=== PATIENT | female | born 1965 | race Caucasian/White ===

== ENCOUNTER 2017-03-12 18:38 | Inpatient (IN) | payer OTHER ==
[2017-03-12] MEDS ORDERED: morphine CARPU-JECT 8 MG/1 ML DISP.SYRIN ONE ×3 (19:26→20:55)
[2017-03-12] MEDS ORDERED: morphine SULFATE 4 MG/ML VIAL IVPUSH ONE (19:28)
[2017-03-12] MEDS ORDERED: ONDANSETRON 4 MG/2 ML VIAL ONE (19:30)
[2017-03-12] MEDS ORDERED: ONDANSETRON 4 MG/2 ML VIAL IVPUSH ONE (19:31)
[2017-03-12 19:43] LABS: BASO % 0.6 % (0-2.0); EOS % 0.6 % (0-4.5); MCH 30.3 pg (25.7-33.7); MCHC 33.1 g/dl (32.0-36.0); MEAN CELL VOLUME 91.4 fl (80-96); NEUT % 82.9 % (42.8-82.8); PLATELET COUNT 214 K/MM3 (134-434)
[2017-03-12] MEDS ORDERED: SODIUM CHLORIDE 0.9% 1000 ML INFUS.BAG IV ONE (19:48)
[2017-03-12] MEDS ORDERED: morphine CARPU-JECT 2 MG/1 ML DISP.SYRIN IVPUSH ONE (19:48)
[2017-03-12 20:08] LABS: ALBUMIN 3.9 g/dl (3.4-5.0); ALK PHOS 90 U/L (45-117); ANION GAP 11 (8-16); BILIRUBIN,TOTAL 0.9 mg/dL (0.2-1.0); CALCIUM 9.4 mg/dL (8.5-10.1); CO2 25 mmol/L (21-32); CREATININE 0.6 mg/dL (0.55-1.02); GLUCOSE,RANDOM 126 mg/dL (74-106); SGOT/AST 21 U/L (15-37); SGPT/ALT 38 U/L (12-78); TOT PROT 7.2 g/dl (6.4-8.2)
--- NOTE | 2017-03-12 20:08 | PDOC ---
History of Present Illness - General History Source: Patient Exam Limitations: No Limitations - History of Present Illness Initial Comments: 03/12/17 20:21 The patient is a 59 year old female, with a significant past medical history cholecystectomy, who presents to the emergency department with, nausea and diffuse abdominal pain beginning this morning. The patient reports the pain began after consuming a mixed vegetable juice. She describes her pain as constant and vague. She denies emesis accompanying her nausea. She reports this occurring one time before and believes it is an allergic reaction. She denies recent fevers, chills, headache or dizziness. She denies recent vomit , diarrhea or constipation. She denies any sick contacts. She denies recent dysuria, frequency, urgency or hematuria. She denies recent chest pain or shortness of breath. Allergies: NKA Social history: Nonsmoker. Denies EtOH use and recreational drug use. Primary Care Physician: Dr. Connie Dixon <Evan Hernandez - Last Filed: 03/12/17 23:36> - General History Source: Patient Exam Limitations: No Limitations <Alessia Felipe - Last Filed: 03/13/17 01:54> - General Chief Complaint: Pain, Acute Stated Complaint: ABDOMINAL PAIN Time Seen by Provider: 03/12/17 19:27 Past History <Evan Hernandez - Last Filed: 03/12/17 23:36> - Past Medical History COPD: No Other medical history: denies - Surgical History Cholecystectomy: Yes - Suicide/Smoking/Psychosocial Hx Smoking History: Never smoked Information on smoking cessation initiated: No Hx Alcohol Use: No Drug/Substance Use Hx: No <Alessia Felipe - Last Filed: 03/13/17 01:54> - Past Medical History Allergies/Adverse Reactions: Allergies Allergy/AdvReac Type Severity Reaction Status Date / Time No Known Allergies Allergy Unverified 03/12/17 18:43 Home Medications: Ambulatory Orders Lisdexamfetamine Dimesylate [Vyvanse] 30 mg PO DAILY 03/12/17 Review of Systems - Review of Systems Able to Perform ROS?: Yes Comments:: 03/12/17 20:21 GENERAL/CONSTITUTIONAL: No fever or chills. No weakness. HEAD, EYES, EARS, NOSE AND THROAT: No change in vision. No ear pain or discharge. No sore throat. CARDIOVASCULAR: No chest pain or shortness of breath. RESPIRATORY: No cough, wheezing, or hemoptysis. GASTROINTESTINAL: +Nausea. +Diffuse abdominal pain. No vomiting, diarrhea or constipation. GENITOURINARY: No dysuria, frequency, or change in urination. MUSCULOSKELETAL: No joint or muscle swelling or pain. No neck or back pain. SKIN: No rash NEUROLOGIC: No headache, vertigo, loss of consciousness, or change in strength/ sensation. ENDOCRINE: No increased thirst. No abnormal weight change. HEMATOLOGIC/LYMPHATIC: No anemia, easy bleeding, or history of blood clots. ALLERGIC/IMMUNOLOGIC: No hives or skin allergy. All Other Systems: Reviewed and Negative <Evan Hernandez - Last Filed: 03/12/17 23:36> *Physical Exam - Vital Signs Last Vital Signs Temp Pulse Resp BP Pulse Ox 98.7 F 94 H 17 143/90 98 03/12/17 18:41 03/12/17 18:41 03/12/17 18:41 03/12/17 18:41 03/12/17 18:41 - Physical Exam Comments: 03/12/17 20:22 GENERAL: Awake, alert, and fully oriented, in no acute distress HEAD: No signs of trauma EYES: PERRLA, EOMI, sclera anicteric, conjunctiva clear ENT: +Dry mucous membranes. Auricles normal inspection, nares patent. NECK: Normal ROM, supple, no JVD, or masses LUNGS: Breath sounds equal, clear to auscultation bilaterally. No wheezes, and no crackles HEART: Regular rate and rhythm, normal S1 and S2, no murmurs, rubs or gallops ABDOMEN: +Mild epigastric tenderness. Soft, normoactive bowel sounds. No guarding, no rebound. No masses EXTREMITIES: Normal range of motion, no edema. No clubbing or cyanosis. No cords, erythema, or tenderness NEUROLOGICAL: Alert and oriented x 3. Moves all extremities. Face is symmetric. SKIN: Warm, Dry, normal turgor, no rashes or lesions noted. <Evan Hernandez - Last Filed: 03/12/17 23:36> - Vital Signs Last Vital Signs Temp Pulse Resp BP Pulse Ox 98.7 F 94 H 17 143/90 98 03/12/17 18:41 03/12/17 18:41 03/12/17 18:41 03/12/17 18:41 03/12/17 18:41 <Alessia Felipe - Last Filed: 03/13/17 01:54> Heart Score/ECG Review #1 ECG reviewed & interpreted by me at: 01:54 General ECG Interpretation: Sinus Rhythm, Normal Rate (75), Normal Intervals, No acute ischemic changes <Alessia Felipe - Last Filed: 03/13/17 01:54> ED Treatment Course - LABORATORY CBC & Chemistry Diagram: 03/12/17 19:30 03/12/17 19:30 - ADDITIONAL ORDERS Additional order review: Laboratory Results 03/12/17 03/12/17 19:30 19:30 Sodium 142 Potassium 3.6 Chloride 106 Carbon Dioxide 25 Anion Gap 11 BUN 18 Creatinine 0.6 Creat Clearance w eGFR > 60 Random Glucose 126 H Calcium 9.4 Total Bilirubin 0.9 AST 21 ALT 38 Alkaline Phosphatase 90 Total Protein 7.2 Albumin 3.9 Lipase 251 03/12/17 19:30 RBC 4.95 MCV 91.4 MCHC 33.1 RDW 15.0 MPV 10.0 Neutrophils % 82.9 H Lymphocytes % 11.9 Monocytes % 4.0 Eosinophils % 0.6 Basophils % 0.6 - Medications Given in the ED: ED Medications Discontinued Medications Generic Name Dose Route Start Last Admin Trade Name Freq PRN Reason Stop Dose Admin Al Hydroxide/Mg Hydroxide 30 ml 03/12/17 20:09 03/12/17 20:17 Mylanta Oral Suspension - PO 03/12/17 20:10 30 ml ONCE ONE Administration Morphine Sulfate 4 mg 03/12/17 19:28 03/12/17 19:33 Morphine Sulfate IVPUSH 03/12/17 19:29 4 mg ONCE ONE Administration Morphine Sulfate 2 mg 03/12/17 19:48 03/12/17 19:59 Morphine Injection - IVPUSH 03/12/17 19:49 2 mg ONCE ONE Administration Ondansetron HCl 4 mg 03/12/17 19:31 03/12/17 19:33 Zofran Injection IVPUSH 03/12/17 19:32 4 mg ONCE ONE Administration Sodium Chloride 1,000 ml 03/12/17 19:48 03/12/17 20:00 Normal Saline - IV 03/12/17 19:49 1,000 ml ONCE ONE Administration <MalikjonahEvan - Last Filed: 03/12/17 23:36> - LABORATORY CBC & Chemistry Diagram: 03/12/17 19:30 03/12/17 19:30 - ADDITIONAL ORDERS Additional order review: Laboratory Results 03/12/17 19:30 Lipase 251 03/12/17 19:30 RBC 4.95 MCV 91.4 MCHC 33.1 RDW 15.0 MPV 10.0 Neutrophils % 82.9 H Lymphocytes % 11.9 Monocytes % 4.0 Eosinophils % 0.6 Basophils % 0.6 - RADIOLOGY Radiology Studies Ordered: Category Date Time Status ABDOMEN & PELVIS CT WITH CONTR [CT] Stat CT Scan 03/12/17 20:00 Ordered - Medications Given in the ED: ED Medications Discontinued Medications Generic Name Dose Route Start Last Admin Trade Name Freq PRN Reason Stop Dose Admin Morphine Sulfate 4 mg 03/12/17 19:28 03/12/17 19:33 Morphine Sulfate IVPUSH 03/12/17 19:29 4 mg ONCE ONE Administration Morphine Sulfate 2 mg 03/12/17 19:48 03/12/17 19:59 Morphine Injection - IVPUSH 03/12/17 19:49 2 mg ONCE ONE Administration Ondansetron HCl 4 mg 03/12/17 19:31 03/12/17 19:33 Zofran Injection IVPUSH 03/12/17 19:32 4 mg ONCE ONE Administration Sodium Chloride 1,000 ml 03/12/17 19:48 03/12/17 20:00 Normal Saline - IV 03/12/17 19:49 1,000 ml ONCE ONE Administration <Alessia Felipe - Last Filed: 03/13/17 01:54> Medical Decision Making - Medical Decision Making 03/12/17 20:07 59-year-old female history of prior cholecystectomy here today complaining of nausea diffuse abdominal pain starting since this a.m. after drinking some juice. No vomiting but folic inducing emesis to relieve her nausea. Abdominal pain is diffuse no moderating factors no radiation constant no urinary complaints no fevers chills no sick contacts no travel On exam she is awake alert no acute distress does appear to have dry mucous membranes cardiac lung exam is unremarkable abdomen is soft mild epigastric tenderness otherwise unremarkable abdominal exam no rebound no guarding extremities are warm well perfused no edema Differential diagnosis bowel obstruction, pancreatitis, viral gastritis, dehydration, electrolyte abnormality. Plan CT abdomen and pelvis CBC lytes lipase UA IV hydration antiemetics and pain control and reassess <Alessia Felipe - Last Filed: 03/13/17 01:54> *DC/Admit/Observation/Transfer - Attestations Scribe Attestion: 03/12/17 20:22 Documentation prepared by Evan Hernandez, acting as medical office technology instructor for Alessia Felipe MD. <Evan Hernandez - Last Filed: 03/12/17 23:36> - Discharge Dispostion Admit: Yes <Alessia Felipe - Last Filed: 03/13/17 01:54> Diagnosis at time of Disposition: SBO (small bowel obstruction)
[2017-03-12] MEDS ORDERED: MAG HYDROX/AL HYDROX/SIMETH 30 ML UNIT-DOSE CUP PO ONE (20:09)
[2017-03-12] MEDS ORDERED: FAMOTIDINE 20 MG/50 ML IVPB 20 MG/50 ML MG IVPB ONE ×2 (20:11→22:28)
[2017-03-12] MEDS ORDERED: MAG HYDROX/AL HYDROX/SIMETH 30 ML UNIT-DOSE CUP ONE (20:11)
[2017-03-12] MEDS: FAMOTIDINE IV 20 MG/12 ML VIAL IVPUSH SCH ×2 (20:17→22:03)
[2017-03-12] MEDS ORDERED: morphine CARPU-JECT 4 MG/1 ML DISP.SYRIN IVPUSH ONE ×3 (20:52→23:46)
[2017-03-12] MEDS ORDERED: morphine CARPU-JECT 10 MG/1 ML DISP.SYRIN ONE (23:51)
--- NOTE | 2017-03-13 00:14 | PN ---
Teaching Attending Note Name of Resident: Vicente Lainez ATTENDING PHYSICIAN STATEMENT I saw and evaluated the patient. I reviewed the resident's note and discussed the case with the resident. I agree with the resident's findings and plan as documented. SUBJECTIVE: 59 yo F with pmhx of choleycystectomy who presents with diffuse abdominal pain and nausea. Notes she drank a vegetable juice in the am, and after that pain began. Pain is described as constant in nature. No vomiting. OBJECTIVE: Physical: VS: Vital Signs Period Temp Pulse Resp BP Sys/Anthony Pulse Ox Last 24 Hr 98.7 F 94 17 143/90 98 GEN: NAD, Resting in bed, Able to speak full sentences, AA0X3 HEENT: NCAT, PERRL, throat without erythema or exudates CARD: RRR S1, S2 RESP: CTAB ABD: BSx4, Mild distension, NTD to palption EXT: - C/C/E CBCD WBC 13.0 K/mm3 (4.0-10.0) H 03/12/17 19:30 RBC 4.95 M/mm3 (3.60-5.2) 03/12/17 19:30 Hgb 15.0 GM/dL (10.7-15.3) 03/12/17 19:30 Hct 45.3 % (32.4-45.2) H 03/12/17 19:30 MCV 91.4 fl (80-96) 03/12/17 19:30 MCHC 33.1 g/dl (32.0-36.0) 03/12/17 19:30 RDW 15.0 % (11.6-15.6) 03/12/17 19:30 Plt Count 214 K/MM3 (134-434) 03/12/17 19:30 MPV 10.0 fl (7.5-11.1) 03/12/17 19:30 CMP Sodium 142 mmol/L (136-145) 03/12/17 19:30 Potassium 3.6 mmol/L (3.5-5.1) 03/12/17 19:30 Chloride 106 mmol/L (98-107) 03/12/17 19:30 Carbon Dioxide 25 mmol/L (21-32) 03/12/17 19:30 Anion Gap 11 (8-16) 03/12/17 19:30 BUN 18 mg/dL (7-18) 03/12/17 19:30 Creatinine 0.6 mg/dL (0.55-1.02) 03/12/17 19:30 Creat Clearance w eGFR > 60 (>60) 03/12/17 19:30 Random Glucose 126 mg/dL (74-106) H 03/12/17 19:30 Calcium 9.4 mg/dL (8.5-10.1) 03/12/17 19:30 Total Bilirubin 0.9 mg/dL (0.2-1.0) 03/12/17 19:30 AST 21 U/L (15-37) 03/12/17 19:30 ALT 38 U/L (12-78) 03/12/17 19:30 Alkaline Phosphatase 90 U/L (45-117) 03/12/17 19:30 Total Protein 7.2 g/dl (6.4-8.2) 03/12/17 19:30 Albumin 3.9 g/dl (3.4-5.0) 03/12/17 19:30 CT ABD/ PELVIS W. CON: Mid-Distal small bowel obstruction, small amt free fluid within pelvis and mesentery. S/p Choleycystectomy ASSESSMENT AND PLAN: 51 F wiht hx of choleycystectomy who presents with abdominal pain and nausea, being admitted for a small bowel obstruction 1.) Small Bowel Obstruction - NPO - NGT- PT refusing right now - Sx. consulted - IVF - Type and Screen - Coags in Am - Serial Abd. Exams 2.) Dvt Ppx - SCDs Place in Med-Sx
--- NOTE | 2017-03-13 00:18 | HP ---
CHIEF COMPLAINT: diffuse abdominal pain PCP:Dr.Danuta Dixon HISTORY OF PRESENT ILLNESS: Patient is 51 year old female with PMHx of cholecystectomy who presented to the ED today due to diffuse abdominal pain. The pain started 6 am yesterday, squeezing in nature , mid epigastric and radiated to her back. The pain is constant worsen with food and improve with morphine at ED. Patient reports nausea but denies nay vomiting. She had a bowel movement around 12 pm and it was normal, no diarrhea , constipation or melena. She denies any weight loss but reports weight gain. She denies any fever, chills, chest pain, palpitation, SOB. She denies any urinary symptoms. She denies recent travel. Her had a flue last week, she had a flue last month. She has a history of tubal ligation 12 years a go and cholecystectomy more than 10 years ago. She had a previous episode of abdominal pain years ago and resolved by it self. ER course was notable for: (1) CT scan Abdomen and pelvic shows small bowel obstruction (2) Pain controlled with IV morphine , Ondansteron IV for Nausea (3)WBC 13, Lipase 251 Recent Travel:Denies PAST MEDICAL HISTORY: Asthma , PAST SURGICAL HISTORY: Cholecystectomy 10 years ago , tubal ligation 12 years ago Social History: Smoking:socially Alcohol:socially Drugs: denies Family History: father had ruptured aneurysm at age of 73 Allergies No Known Allergies Allergy (Unverified 03/12/17 18:43) HOME MEDICATIONS: Home Medications Medication Instructions Recorded Lisdexamfetamine Dimesylate 30 mg PO DAILY 03/12/17 [Vyvanse] REVIEW OF SYSTEMS CONSTITUTIONAL: Absent: fever, chills, diaphoresis, generalized weakness, malaise, loss of appetite, HEENT: Absent: rhinorrhea, nasal congestion, throat pain, throat swelling, difficulty swallowing, mouth swelling, ear pain, eye pain, visual changes CARDIOVASCULAR: Absent: chest pain, syncope, palpitations, irregular heart rate, lightheadedness , peripheral edema RESPIRATORY: Absent: cough, shortness of breath, dyspnea with exertion, orthopnea, wheezing, stridor, hemoptysis GASTROINTESTINAL: Absent: abdominal pain, abdominal distension, nausea, vomiting, diarrhea, constipation, melena, hematochezia GENITOURINARY: Absent: dysuria, frequency, urgency, hesitancy, hematuria, flank pain, genital pain MUSCULOSKELETAL: Absent: myalgia, arthralgia, joint swelling, back pain, neck pain SKIN: Absent: rash, itching, pallor HEMATOLOGIC/IMMUNOLOGIC: Absent: easy bleeding, easy bruising, lymphadenopathy, frequent infections ENDOCRINE: Absent: unexplained weight gain, unexplained weight loss, heat intolerance, cold intolerance NEUROLOGIC: Absent: headache, focal weakness or paresthesias, dizziness, unsteady gait, seizure, mental status changes, bladder or bowel incontinence PSYCHIATRIC: Absent: anxiety, depression, suicidal or homicidal ideation, hallucinations. PHYSICAL EXAMINATION Vital Signs - 24 hr 03/12/17 18:41 Temperature 98.7 F Pulse Rate 94 H Respiratory 17 Rate Blood Pressure 143/90 O2 Sat by Pulse 98 Oximetry (%) GENERAL: Awake, alert, and fully oriented, in mild distress. HEAD: Normal with no signs of trauma. EYES: Pupils equal, round and reactive to light, sclera anicteric, conjunctiva clear. EARS, NOSE, THROAT: Ears normal, nares patent, oropharynx clear without exudates. Moist mucous membranes. NECK: supple without lymphadenopathy, LUNGS: Breath sounds equal, clear to auscultation bilaterally. No wheezes, and no crackles. No accessory muscle use. HEART: Regular rate and rhythm, normal S1 and S2 without murmur, rub or gallop. ABDOMEN: Soft, nontender, not distended, normoactive bowel sounds, no guarding, no rebound, no masses LOWER EXTREMITIES: 2+ pulses, warm, well-perfused. No calf tenderness. No peripheral edema. NEUROLOGICAL: No focal deficit Normal speech. PSYCHIATRIC: Cooperative. Good eye contact. Appropriate mood and affect. SKIN: Warm, dry, normal turgor, no rashes or lesions noted, normal capillary refill. Laboratory Results - last 24 hr 03/12/17 03/12/17 03/12/17 19:30 19:30 19:30 WBC 13.0 H RBC 4.95 Hgb 15.0 Hct 45.3 H MCV 91.4 MCH 30.3 MCHC 33.1 RDW 15.0 Plt Count 214 MPV 10.0 Neutrophils % 82.9 H Lymphocytes % 11.9 Monocytes % 4.0 Eosinophils % 0.6 Basophils % 0.6 Sodium 142 Potassium 3.6 Chloride 106 Carbon Dioxide 25 Anion Gap 11 BUN 18 Creatinine 0.6 Creat Clearance w eGFR > 60 Random Glucose 126 H Lactic Acid Calcium 9.4 Total Bilirubin 0.9 AST 21 ALT 38 Alkaline Phosphatase 90 Total Protein 7.2 Albumin 3.9 Lipase 251 03/12/17 19:50 WBC RBC Hgb Hct MCV MCH MCHC RDW Plt Count MPV Neutrophils % Lymphocytes % Monocytes % Eosinophils % Basophils % Sodium Potassium Chloride Carbon Dioxide Anion Gap BUN Creatinine Creat Clearance w eGFR Random Glucose Lactic Acid 1.0 Calcium Total Bilirubin AST ALT Alkaline Phosphatase Total Protein Albumin Lipase CBC, BMP 03/12/17 19:30 03/12/17 19:30 ASSESSMENT/PLAN: Patient is 51 year old female with PMHx of cholecystectomy who presented to the ED today due to diffuse abdominal pain. was found to have small obstruction and was admitted for further evaluation. # Small Bowel obstruction S/P cholecystectomy * CT abdomen /pelvic shows small bowel obstruction * NPO * Pain controlled with IV tylenol 1000 mg Q6h * IV fluids NS @ 100 CC/Hr * Pepcid * Zofran * Consult surgery * CBC, CMP * Amylase, lipase * CT abdomen /pelvic shows small bowel obstruction * NG tube * Abdominal exam series * Type and screen * coage studies # FEN * NS@ 100 Ml /hr * E monitor * N: NPO # Proph * DVT: SCDs Both legs * GI: Omeprazole # Dispo * Admit ot med surge * NPO
[2017-03-13] MEDS ORDERED: ONDANSETRON 4 MG/2 ML VIAL IVPUSH PRN (01:13)
[2017-03-13] MEDS ORDERED: ACETAMINOPHEN 1000 MG/100 ML VIAL (NON FORMULARY) IVPB PRN (01:15)
[2017-03-13] MEDS: SODIUM CHLORIDE 1,000 ML IV SCH ×2 (01:30→03:15)
[2017-03-13] MEDS ORDERED: HYDROmorphone HCL CARPU-JECT 1 MG/1 ML DISP.SYRIN IVPB ONE (01:34)
--- NOTE | 2017-03-13 01:38 | MSN ---
Admitting History and Physical - Admission Chief Complaint: "stomach pain" History of Present Illness: Mrs. Miki Blanchard is a 51yo F with a past surgical hx of cholecystectomy (>10 years) and tubal ligation (>12 years) who presented with 10/10 diffuse abdominal pain that is more severe in the epigastric and umbilical region and radiates to the back. Patient noted pain at 6am which is worsened by food. Patient had a normal bowel movement in the afternoon. She also complains of nausea but denies loss of appetite, vomitting diarrhea. Patient denies fever, diarrhea/ constipation, chest pains, SOB, urinary symptoms. ER course was notable for: - CT scan of abdomen: mid-distal small bowel obstruction - pain management with morphine. nausea tx w/ odansetron - WBC 13 History Source: Patient Limitations to Obtaining History: Language Barrier (german) - Past Medical History Pulmonary: Yes: Asthma (last attack being years ago, not on any medications) - Past Surgical History Past Surgical History: Yes: Cholecystectomy (>10 years ago), Tubal Ligation (12 years ago) - Smoking History Smoking history: Current some day smoker (only on social occasions) Have you smoked in the past 12 months: No - Alcohol/Substance Use Hx Alcohol Use: No - Social History Usual Living Arrangement: Yes: With Spouse History of Recent Travel: No Home Medications - Allergies Allergies/Adverse Reactions: Allergies Allergy/AdvReac Type Severity Reaction Status Date / Time No Known Allergies Allergy Unverified 03/12/17 18:43 - Home Medications Home Medications: Ambulatory Orders Lisdexamfetamine Dimesylate [Vyvanse] 30 mg PO DAILY 03/12/17 Family Disease History - Family Disease History Family Disease History: Other: Father (ruptured aneurysm) Review of Systems - Review of Systems Constitutional: reports: Other (patient is in acute distress due to pain) Eyes: reports: No Symptoms HENT: reports: No Symptoms Neck: reports: No Symptoms Cardiovascular: reports: No Symptoms Respiratory: reports: No Symptoms Gastrointestinal: reports: Abdominal Pain (diffuse abdominal pain. more severe in the umbilical/ epigastric region and radiates to the back.), Nausea Genitourinary: reports: No Symptoms Physical Examination Vital Signs: Vital Signs Temperature 98.7 F 03/12/17 18:41 Pulse Rate 94 H 03/12/17 18:41 Respiratory Rate 17 03/12/17 18:41 Blood Pressure 143/90 03/12/17 18:41 O2 Sat by Pulse Oximetry (%) 98 03/12/17 18:41 Constitutional: Yes: Well Nourished, Moderate Distress Eyes: Yes: WNL, Conjunctiva Clear, EOM Intact, PERRL HENT: Yes: WNL, Atraumatic, Normocephalic Neck: Yes: WNL, Trachea Midline Cardiovascular: Yes: WNL, Regular Rate and Rhythm Respiratory: Yes: WNL, Regular, CTA Bilaterally Gastrointestinal: Yes: WNL, Normal Bowel Sounds, Soft, Distention Extremities: Yes: WNL Edema: No Peripheral Pulses WNL: Yes Peripheral Pulses: Left Radial: 2+, Right Radial: 2+, Left Doralis Pedis: 2+, Right Dorsalis Pedis: 2+ Neurological: Yes: WNL, Alert, Oriented Labs: CBC, BMP 03/12/17 19:30 03/12/17 19:30 Laboratory Results - last 24 hr 03/12/17 03/12/17 03/12/17 19:30 19:30 19:30 WBC 13.0 H RBC 4.95 Hgb 15.0 Hct 45.3 H MCV 91.4 MCH 30.3 MCHC 33.1 RDW 15.0 Plt Count 214 MPV 10.0 Neutrophils % 82.9 H Lymphocytes % 11.9 Monocytes % 4.0 Eosinophils % 0.6 Basophils % 0.6 Sodium 142 Potassium 3.6 Chloride 106 Carbon Dioxide 25 Anion Gap 11 BUN 18 Creatinine 0.6 Creat Clearance w eGFR > 60 Random Glucose 126 H Lactic Acid 1.0 Calcium 9.4 Total Bilirubin 0.9 AST 21 ALT 38 Alkaline Phosphatase 90 Total Protein 7.2 Albumin 3.9 Lipase 251 Imaging - Results Cat Scan: Report Reviewed (mid to distal small bowel obstruction is noted. possible secondary to adhesion. the dilated small bowel demonstrate a maximal dilated lumen of 3.2 cm. No colonic distension.), Image Reviewed Assessment/Plan 51 yo F presenting to the ER with diffuse abdominal pain secondary to small bowel obstruction. Plan: # small bowel obstruction on CT - pain: acetaminophen 1000mg IVPB q6h prn pain - nausea: odansetron 4mg IV push q6h prn nausea - famotidine pepcid 20mg in 12mls@144mls/hr IVPUSH BID THANH - surgery consulted - NPO - Nasogastric tube to decompress the stomach: patient currently refuse - fluid- NS 1000mls @100mls/hr IV - Type and Screen - Coags in the morning - Serial Abd. Exams #FEN - fluid: - electrolytes: no abnormalities - nutrition: NPO #DVT prophylaxis - SCDs
[2017-03-13] MEDS ORDERED: HYDROmorphone HCL CARPU-JECT 1 MG/1 ML DISP.SYRIN ONE (01:48)
[2017-03-13] MEDS ORDERED: HEPARIN NA (PORCINE) 5,000 UNITS/ML 1ML VIAL SQ SCH ×2 (02:00→22:00)
[2017-03-13 03:18] LABS: INR 1.05 (0.82-1.09); PROTHROMBIN TIME (PATIENT) 11.9 SEC (9.98-11.88)
[2017-03-13 03:20] LABS: ACTIVATED PTT 32.7 SECONDS (26.9-34.4)
[2017-03-13 03:39] VITALS: BMI 29.9
[2017-03-13] MEDS: FAMOTIDINE IV 20 MG/12 ML VIAL IVPUSH SCH (10:00)
[2017-03-13 11:13] LABS: BASO % 0.5 % (0-2.0); EOS % 3.5 % (0-4.5); MCH 29.6 pg (25.7-33.7); MEAN CELL VOLUME 92.8 fl (80-96); MEAN PLT VOLUME 9.3 fl (7.5-11.1); NEUT % 65.2 % (42.8-82.8); PLATELET COUNT 171 K/MM3 (134-434); RDW 14.9 % (11.6-15.6); WHITE BLOOD COUNT 9.5 K/mm3 (4.0-10.0)
[2017-03-13 11:43] LABS: ANION GAP 7 (8-16); CALCIUM 7.9 mg/dL (8.5-10.1); CO2 27 mmol/L (21-32); CREATININE 0.5 mg/dL (0.55-1.02); GLUCOSE,RANDOM 83 mg/dL (74-106); MAGNESIUM 2.1 mg/dL (1.8-2.4); PHOSPHOROUS 3.2 mg/dL (2.5-4.9); SGOT/AST 15 U/L (15-37); SGPT/ALT 31 U/L (12-78)
[2017-03-13 11:44] LABS: ALK PHOS 67 U/L (45-117); BILIRUBIN,TOTAL 0.6 mg/dL (0.2-1.0); TOT PROT 5.7 g/dl (6.4-8.2)
--- NOTE | 2017-03-13 12:37 | PN ---
Physical Exam: 24H Events: O/N -CT A/P revealed distal small bowel obstruction, small amt free fluid within pelvis and mesentery AM: refused NGT, however KUB and abdominal exam improving SUBJECTIVE: Patient seen and examined. Maori-speaking, translation by Dr. Potter. OBJECTIVE: Vital Signs Period Temp Pulse Resp BP Sys/Anthony Pulse Ox Last 24 Hr 98.2 F-100 F 72-94 17-18 118-143/71-90 98-98 GENERAL: EYES: sclera anicteric, conjunctiva clear ENT: oropharynx clear without exudates, MMM LUNGS: CTAB, no wheezes, rales or rhonchi HEART: rrr, normal S1/S2, no m/r/g ABDOMEN: LOWER EXTREMITIES: 2+ pulses, warm, well-perfused, no edema. NEUROLOGICAL: CN II-XII grossly intact. Normal speech. CBC, BMP 03/13/17 10:50 03/13/17 10:50 Hepatic Panel Total Bilirubin 0.6 mg/dL (0.2-1.0) D 03/13/17 10:50 AST 15 U/L (15-37) D 03/13/17 10:50 ALT 31 U/L (12-78) 03/13/17 10:50 Alkaline Phosphatase 67 U/L (45-117) D 03/13/17 10:50 Albumin 3.0 g/dl (3.4-5.0) L D 03/13/17 10:50 IMAGING: KUB 03/13: partial SBO with dilatation of loops of small bowel in mid-abdomen. Active Medications Acetaminophen (Ofirmev Injection -) 1,000 mg IVPB Q6H PRN Stop: 03/14/17 01:14 Last Admin: 03/13/17 03:39 Dose: 1,000 mg Famotidine (Pepcid 20 Mg/12 Ml Push) 20 mg in 12 mls @ 144 mls/hr IVPUSH BID THANH Last Admin: 03/12/17 22:03 Dose: 144 mls/hr Sodium Chloride (Normal Saline -) 1,000 mls @ 100 mls/hr IV ASDIR THANH Last Admin: 03/13/17 03:15 Dose: 100 mls/hr Potassium Chloride 30 meq/ (Sodium Chloride) 315 mls @ 105 mls/hr IVPB ONCE ONE Stop: 03/13/17 17:14 Ondansetron HCl (Zofran Injection) 4 mg IVPUSH Q6H PRN PRN Reason: NAUSEA ASSESSMENT AND PLAN: 51yo woman with PMH of cholecystectomy and tubal ligations (>10y ago) who p/w acute onset abdominal pain and nausea and found to have SBO on imaging. #partial SBO, improving -Surgery consulted -Keep patient NPO, serial abdominal exams, and repeat KUB tomorrow -Hold off on NGT for now (pt initially refused) as she is clinically improving -Continue IVF -Famotidine 20mg IVP BID -Zofran PRN for nausea -Tylenol PRN for pain #FEN -NS @100cc/hr -Replete K with 3 x 10mEq KCl riders -NPO #DVT PPX - Heparin SQ TID #Dispo: continue M/S FULL code d/w Dr. Jai Walls MD PGY1 - Internal Medicine
--- NOTE | 2017-03-13 12:43 | EKG ---
Test Reason : Blood Pressure : / mmHG Vent. Rate : 075 BPM Atrial Rate : 075 BPM P-R Int : 170 ms QRS Dur : 078 ms QT Int : 406 ms P-R-T Axes : 050 013 023 degrees QTc Int : 453 ms NORMAL SINUS RHYTHM POSSIBLE LEFT ATRIAL ENLARGEMENT BORDERLINE ECG NO PREVIOUS ECGS AVAILABLE Confirmed by JOSELYN SALMERON MD ([id number]) on 03/13/2017 12:43:27 PM Referred By: Confirmed By:JOSELYN SALMERON MD
[2017-03-13] MEDS ORDERED: LIDOCAINE VISCOUS 2% ORAL/TOP 20 ML UNIT-DOSE CUP MM ONE (12:59)
[2017-03-13] MEDS ORDERED: KCL 10 MEQ IVPB 10 MEQ/100 ML INFUS.BAG IVPB SCH (13:00)
--- NOTE | 2017-03-13 13:31 | CONSULT ---
- Consultation REQUESTING PROVIDER: Jai CONSULT REQUEST: We have been asked to surgically evaluate this patient for abdominal pain PCP:Clarence Vergara HISTORY OF PRESENT ILLNESS:51 y/o female presented w/nausea and vomiting and crampy abdominal pain which evolved over 24 hours; she came to the ER for evaluation; she denies recent flatus or BM; she has NOC. PMHx: asthma PSHx: lap león 10 years ago Home Medications Medication Instructions Recorded Lisdexamfetamine Dimesylate 30 mg PO DAILY 03/12/17 [Vyvanse] Allergies Allergy/AdvReac Type Severity Reaction Status Date / Time No Known Allergies Allergy Unverified 03/12/17 18:43 PHYSICAL EXAM: GENERAL: Awake, alert, and fully oriented, in no acute distress. HEAD: Normal with no signs of trauma. EYES: sclera anicteric, conjunctiva clear. NECK: Normal ROM, supple without lymphadenopathy, JVD, or masses. ABDOMEN: Soft, nontender, not distended, normoactive bowel sounds, no guarding, no rebound, no masses. No organomegaly. Slight tympany; healed port sites; no hernias MUSCULOSKELETAL: Normal ROM at all joints. No bony deformities or tenderness. No CVA tenderness. UPPER EXTREMITIES: 2+ pulses, warm, well-perfused. No cyanosis. Cap refill <2 seconds. No peripheral edema. LOWER EXTREMITIES: 2+ pulses, warm, well-perfused. No calf tenderness. No peripheral edema. NEUROLOGICAL: Normal speech, gait not observed. PSYCH: Cooperative. Good eye contact. Appropriate mood and affect. SKIN: Warm, dry, normal turgor, no rashes or lesions noted. Vital Signs Temperature 98.2 F 03/13/17 09:14 Pulse Rate 72 03/13/17 09:14 Respiratory Rate 17 03/13/17 09:14 Blood Pressure 118/72 03/13/17 09:14 O2 Sat by Pulse Oximetry (%) 98 03/13/17 09:00 Lab Results WBC 9.5 K/mm3 (4.0-10.0) 03/13/17 10:50 RBC 4.52 M/mm3 (3.60-5.2) 03/13/17 10:50 Hgb 13.4 GM/dL (10.7-15.3) D 03/13/17 10:50 Hct 42.0 % (32.4-45.2) 03/13/17 10:50 MCV 92.8 fl (80-96) 03/13/17 10:50 MCHC 32.0 g/dl (32.0-36.0) 03/13/17 10:50 RDW 14.9 % (11.6-15.6) 03/13/17 10:50 Plt Count 171 K/MM3 (134-434) D 03/13/17 10:50 Sodium 142 mmol/L (136-145) 03/13/17 10:50 Potassium 3.3 mmol/L (3.5-5.1) L 03/13/17 10:50 Chloride 108 mmol/L (98-107) H 03/13/17 10:50 Carbon Dioxide 27 mmol/L (21-32) 03/13/17 10:50 Anion Gap 7 (8-16) L 03/13/17 10:50 BUN 13 mg/dL (7-18) D 03/13/17 10:50 Creatinine 0.5 mg/dL (0.55-1.02) L 03/13/17 10:50 Random Glucose 83 mg/dL (74-106) D 03/13/17 10:50 Calcium 7.9 mg/dL (8.5-10.1) L 03/13/17 10:50 Blood Type O NEGATIVE 03/13/17 02:00 Antibody Screen Negative 03/13/17 02:00 INR 1.05 (0.82-1.09) 03/13/17 02:00 CT a/p films and reports reviewed; AXR's from today reviewed IMP:partial sbo PLAN: Patient initially refused NGT; at this time as films are improved and patient appears stable would continue NPO/IVF/serial exams and f/u AXR's ; d/w the patient extensively in [place] the importance of NPO etc. Anival Killian MD FACS Visit type - Case Type Case Type: ED Admission - Emergency Emergency Visit: Yes ED Registration Date: 03/13/17 Care time: The patient presented to the Emergency Department on the above date and was hospitalized for further evaluation of their emergent condition. - New patient This patient is new to me today: Yes Date on this admission: 03/13/17 - Critical Care Critical Care patient: No
[2017-03-13] MEDS ORDERED: POTASSIUM CHLORIDE 30 MEQ in SODIUM CHLORIDE 300 ML IVPB ONE (14:15)
[2017-03-13 14:38] VITALS: BP 115/61; PULSE 79; TEMP 98.1
--- NOTE | 2017-03-13 22:37 | DS ---
Physical Exam: O/N -CT A/P revealed distal small bowel obstruction, small amt free fluid within pelvis and mesentery AM: refused NGT, however KUB and abdominal exam improving SUBJECTIVE: Patient seen and examined. Icelandic-speaking, translation by Dr. Potter. Feel better. Wants to eat. Denies nausea, vomiting. OBJECTIVE: Vital Signs Period Temp Pulse Resp BP Sys/Anthony Pulse Ox Last 24 Hr 98.2 F-100 F 72-94 17-18 118-143/71-90 98-98 GENERAL: nad, aaox3 EYES: sclera anicteric, conjunctiva clear ENT: oropharynx clear without exudates, MMM LUNGS: CTAB, no wheezes, rales or rhonchi HEART: rrr, normal S1/S2, no m/r/g ABDOMEN: soft, ntnd, normoactive BS LOWER EXTREMITIES: 2+ pulses, warm, well-perfused, no edema. NEUROLOGICAL: CN II-XII grossly intact. Normal speech. CBC, BMP 03/13/17 10:50 03/13/17 10:50 Hepatic Panel Total Bilirubin 0.6 mg/dL (0.2-1.0) D 03/13/17 10:50 AST 15 U/L (15-37) D 03/13/17 10:50 ALT 31 U/L (12-78) 03/13/17 10:50 Alkaline Phosphatase 67 U/L (45-117) D 03/13/17 10:50 Albumin 3.0 g/dl (3.4-5.0) L D 03/13/17 10:50 Active Medications Acetaminophen (Ofirmev Injection -) 1,000 mg IVPB Q6H PRN Stop: 03/14/17 01:14 Last Admin: 03/13/17 03:39 Dose: 1,000 mg Famotidine (Pepcid 20 Mg/12 Ml Push) 20 mg in 12 mls @ 144 mls/hr IVPUSH BID THANH Last Admin: 03/12/17 22:03 Dose: 144 mls/hr Sodium Chloride (Normal Saline -) 1,000 mls @ 100 mls/hr IV ASDIR THANH Last Admin: 03/13/17 03:15 Dose: 100 mls/hr Potassium Chloride 30 meq/ (Sodium Chloride) 315 mls @ 105 mls/hr IVPB ONCE ONE Stop: 12/21/17 17:14 Ondansetron HCl (Zofran Injection) 4 mg IVPUSH Q6H PRN PRN Reason: NAUSEA IMAGING: KUB (03/13/17): partial SBO with dilatation of loops of small bowel in mid- abdomen. CT A/P with PO contrast (03/12/17): Mid to distal small bowel obstruction. small amount free fluid within pelvis/along mesentary noted. s/p cholecystectomy HOSPITAL COURSE: Date of Admission:03/13/17 Date of Discharge: 03/13/17 51yo woman with PMH of cholecystectomy and tubal ligation (>10y ago) who p/w acute onset abdominal pain and nausea and found to have SBO on imaging. Surgery was consulted (Dr. Killian). Patient was kept NPO. Patient refused NGT placement. Patient was given IVFs, anti-emetics and Tylenol for pain control. Serial abdominal exams and repeat KUB revealed resolving SBO. She was found to be hypokalemic and was repleted with 30mEq of KCl. The patient was requesting food. Our team, as well as Dr. Killian, explained the importance of staying NPO. However, the patient adamantly refuses hospitalizations and wants to leave against medical advice. I explained to the patient that leaving against medical advice is dangerous and can lead to worsening of her condition, permanent disability, and even . I used lay terminology. I answered all questions. It's clear to me that she understands the risks and benefits of continuous hospital stya and leaving against medical advice. She has the capacity to make her own decisions. She was told that she should return to the emergency department if symptoms worsen. Minutes to complete discharge: 45 Discharge Summary Reason For Visit: SMALL BOWEL OBSTRUCTION - Instructions Referrals: Connie Dixon MD [Primary Care Provider] - Disposition: AGAINST MEDICAL ADVICE - Home Medications Comprehensive Discharge Medication List: Ambulatory Orders Lisdexamfetamine Dimesylate [Vyvanse] 30 mg PO DAILY 03/12/17 This patient is new to me today: Yes Date on this admission: 03/13/17 Emergency Visit: No Critical Care patient: No - Discharge Referral Referred to [facility] Med P.C.: No
--- NOTE | 2017-03-13 22:47 | PN ---
Teaching Attending Note Name of Resident: Kait Walls ATTENDING PHYSICIAN STATEMENT I saw and evaluated the patient. I reviewed the resident's note and discussed the case with the resident. I agree with the resident's findings and plan as documented. SUBJECTIVE: Patient refusing NPO. OBJECTIVE: Vital Signs Temperature 98.1 F 03/13/17 14:37 Pulse Rate 79 03/13/17 14:37 Respiratory Rate 17 03/13/17 09:14 Blood Pressure 115/61 03/13/17 14:37 O2 Sat by Pulse Oximetry (%) 98 03/13/17 09:00 CBCD WBC 9.5 K/mm3 (4.0-10.0) 03/13/17 10:50 RBC 4.52 M/mm3 (3.60-5.2) 03/13/17 10:50 Hgb 13.4 GM/dL (10.7-15.3) D 03/13/17 10:50 Hct 42.0 % (32.4-45.2) 03/13/17 10:50 MCV 92.8 fl (80-96) 03/13/17 10:50 MCHC 32.0 g/dl (32.0-36.0) 03/13/17 10:50 RDW 14.9 % (11.6-15.6) 03/13/17 10:50 Plt Count 171 K/MM3 (134-434) D 03/13/17 10:50 MPV 9.3 fl (7.5-11.1) 03/13/17 10:50 CMP Sodium 142 mmol/L (136-145) 03/13/17 10:50 Potassium 3.3 mmol/L (3.5-5.1) L 03/13/17 10:50 Chloride 108 mmol/L (98-107) H 03/13/17 10:50 Carbon Dioxide 27 mmol/L (21-32) 03/13/17 10:50 Anion Gap 7 (8-16) L 03/13/17 10:50 BUN 13 mg/dL (7-18) D 03/13/17 10:50 Creatinine 0.5 mg/dL (0.55-1.02) L 03/13/17 10:50 Creat Clearance w eGFR > 60 (>60) 03/13/17 10:50 Random Glucose 83 mg/dL (74-106) D 03/13/17 10:50 Calcium 7.9 mg/dL (8.5-10.1) L 03/13/17 10:50 Total Bilirubin 0.6 mg/dL (0.2-1.0) D 03/13/17 10:50 AST 15 U/L (15-37) D 03/13/17 10:50 ALT 31 U/L (12-78) 03/13/17 10:50 Alkaline Phosphatase 67 U/L (45-117) D 03/13/17 10:50 Total Protein 5.7 g/dl (6.4-8.2) L D 03/13/17 10:50 Albumin 3.0 g/dl (3.4-5.0) L D 03/13/17 10:50 Home Medications Medication Instructions Recorded Lisdexamfetamine Dimesylate 30 mg PO DAILY 03/12/17 [Vyvanse] PE: per resident's note KUB (03/13/17): partial SBO with dilatation of loops of small bowel in mid- abdomen. CT A/P with PO contrast (03/12/17): Mid to distal small bowel obstruction. small amount free fluid within pelvis/along mesentary noted. s/p cholecystectomy ASSESSMENT AND PLAN: Patient is a 51yo woman with PMHx of cholecystectomy and tubal ligation (>10y ago) who presented with acute onset abdominal pain and nausea and was found to have SBO on imaging. Patient was placed NPO , NO NG-tube per surgeon , patient was not happy to be NPO, signed AMA , all the risks were advised , rupture of Bowel and sepsis with septic shock and .
== END 2017-03-13 18:18 | disposition left against medical advice (07) | DRG 390 ==
LOC: JER 18:38 → JERBED 03-13 00:01 → J5S 03-13 03:08
PROVIDERS: ADMIT Internal Medicine; ATTEND Internal Medicine
DX: K56.690 Other partial intestinal obstruction (principal); J45.909 Unspecified asthma, uncomplicated; Z98.51 Tubal ligation status
CPT/HCPCS: 36415; 74020-TC; 74177-TC; 80053; 82150; 83605; 83690; 83735; 84100; 85025; 85610; 85730; 86850; 86900; 86901; 93005; 93010; 99285-25; Q9967